=== PATIENT | male | born 1970 | race Two or more races ===

== ENCOUNTER → 2017-04-28 | Outpatient (CLI) | payer OTHER ==
[~2017-04-28] MED LIST: CELEBREX100 MG; COUMADIN10 MG PO; LISINOPRIL2.5 MG; METOPROLOL SUCC50 MG
== END | disposition home or self-care (01) ==
LOC: RAD 19:48
DX: M79.671 Pain in right foot (principal)

== ENCOUNTER 2019-03-02 08:53 | Outpatient (CLI) | payer OTHER | END 2019-03-02 09:30 | disposition home or self-care (01) | LOC: NUCLEAR 08:53 | DX: I10 Essential (primary) hypertension (principal); Z95.4 Presence of other heart-valve replacement ==